=== PATIENT | female | born 1990 | race Hispanic/Latino ===

== ENCOUNTER 2023-09-27 13:28 | Emergency (ER) | payer OTHER ==
[~2023-09-27] VITALS: Ht 157.5 cm; Wt 87.5 kg
[2023-09-27 13:38] VITALS: BP 122/69; PULSE 88; RESP 14; O2SAT 100
== END 2023-09-27 14:47 | disposition home or self-care (01) ==
LOC: EDH 13:28
DX: R07.89 Other chest pain (principal); F43.0 Acute stress reaction; F41.1 Generalized anxiety disorder; Z88.1 Allergy status to other antibiotic agents; Z88.5 Allergy status to narcotic agent
CPT/HCPCS: 84484; 93005